=== PATIENT | male | born 1985 | race African-American/Black ===

== ENCOUNTER 2016-07-13 14:14 | Emergency (ER) | payer OTHER ==
[~2016-07-13] VITALS: Ht 182.9 cm; Wt 112.5 kg
[2016-07-13 14:22] VITALS: BP 139/90
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
[2016-07-13] MEDS ORDERED: IBUP-1060 PO (15:52)
[2016-07-13] MEDS ORDERED: HYDR-971 PO (15:52)
== END 2016-07-13 16:07 | disposition home or self-care (01) ==
LOC: EDBD 14:14 → ER 14:14
DX: S16.1XXA Strain of muscle, fascia and tendon at neck level, initial encounter (principal); Z88.0 Allergy status to penicillin; Z04.1 Encounter for examination and observation following transport accident; V43.53XA Car driver injured in collision with pick-up truck in traffic accident, initial encounter; Y92.413 State road as the place of occurrence of the external cause; Y93.89 Activity, other specified; Y99.8 Other external cause status
CPT/HCPCS: 70450; 72125; 99284-25